=== PATIENT | male | born 1960 | race Caucasian/White ===

== ENCOUNTER 2018-02-04 07:44 | Emergency (ER) | payer OTHER ==
[~2018-02-04] VITALS: Ht 167.6 cm; Wt 66.7 kg
[~2018-02-04 07:44] MED LIST: MOTRIN800 MG PO
== END 2018-02-04 17:34 | disposition home or self-care (01) ==
LOC: ER 07:44
DX: K52.9 Noninfective gastroenteritis and colitis, unspecified (principal); K21.9 Gastro-esophageal reflux disease without esophagitis